=== PATIENT | female | born 1980 | race Asian ===

== ENCOUNTER 2016-12-09 20:46 | Inpatient (IN) | payer MEDICAID ==
[~2016-12-09] VITALS: Ht 157.5 cm; Wt 79.4 kg
[2016-12-09 20:55] VITALS: BP 139/86
[2016-12-09] MEDS ORDERED: ALBUTEROL SULF8.5 GM INH (20:56)
[2016-12-09] MEDS ORDERED: Solu-MEDROL 125mg Inj IVP ONE (21:00)
[2016-12-09] MEDS: Ipratropium 0.02% Inh Soln 2.5ml UD HHN SCH ×3 (21:03→21:36)
[2016-12-09] MEDS: Albuterol ud Inhalation HHN SCH ×3 (21:03→21:36)
--- NOTE | 2016-12-09 21:06 | Emergency Room Report ---
History of Present Illness General Chief Complaint: Asthma Source: Patient Present Illness HPI 36YOF known asthmatic BIBEMS for SOB for 1 hour Initial o2 sat 90% per EMS Never intubated previously Meds: Allergies: Coded Allergies: ASPIRIN (Verified Allergy, Unknown, 12/09/16) Patient History Past Medical History: asthma Past Surgical History: none Pertinent Family History: none Social History: Denies: alcohol use, drug use, smoking Last Menstrual Period: Last month Now: No Immunizations: UTD Reviewed Nursing Documentation: PMH: Agreed, PSxH: Agreed Nursing Documentation-PMH Past Medical History: No History, Except For Hx Asthma: Yes Review of Systems All Other Systems: negative except mentioned in HPI Physical Exam Vital Signs Date Time Temp Pulse Resp B/P Pulse Ox O2 Delivery O2 Flow Rate FiO2 12/09/16 20:46 98.4 134 28 139/86 99 Simple Mask 10.0 Sp02 EP Interpretation: reviewed, normal General Appearance: normal inspection, well appearing, no apparent distress, alert, GCS 15, non-toxic Head: normocephalic, atraumatic Eyes: bilateral eye EOMI, bilateral eye PERRL ENT: normal ENT inspection, hearing grossly normal, normal voice Neck: normal inspection, full range of motion, supple, no bony tend Respiratory: normal inspection, no respiratory distress, no retraction, no accessory muscle use, speaking full sentences, wheezing Cardiovascular #1: regular rate, rhythm, no edema Gastrointestinal: normal inspection, normal bowel sounds, non tender, soft, no guarding, no hernia Genitourinary: no CVA tenderness Musculoskeletal: normal inspection, back normal, normal range of motion, [place] Sign negative Neurologic: normal inspection, alert, oriented x3, responsive, [employer]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 Afebrile. - Improved with nebs but required steroids, additional Albuterol and Mg for complete resolution - CXR no lobar PNA - Labs: Leuks 15k but afebrile and no PNA so unlikely infectious, likely reactionary/stress induced leuks - Endorsed to Dr Elias for tele admit at 1034pm Rhythm Strip Diag. Results EP Interpretation: yes Rate: 107 Rhythm: NSR, no PVC's, no ectopy Chest X-Ray Diagnostic Results Chest X-Ray Diagnostic Results : Chest X-Ray Ordered: Yes # of Views/Limited/Complete: 1 View Indication: Shortness of Breath EP Interpretation: Yes Interpretation: no consolidation, no effusion, no pneumothorax, no acute cardiopulmonary disease Impression: No acute disease Interpreting ER Provider: Electronically signed by Dr Barroso Last Vital Signs Date Time Temp Pulse Resp B/P Pulse Ox O2 Delivery O2 Flow Rate FiO2 12/09/16 20:46 98.4 134 28 139/86 99 Simple Mask 10.0 Status: improved Disposition: ADMITTED INPATIENT Condition: Serious MARGRET BARROSO M.D. Dec 09, 2016 21:06
[2016-12-09] MEDS ORDERED: Albuterol ud Inhalation HHN ONE (22:00)
[2016-12-09 22:01] LABS: EOSINOPHILS % (AUTO) 6.8 % (0.0-3.0); LYMPHOCYTES % (AUTO) 31.8 % (20.0-45.0); MEAN CORPUSCULAR HEMOGLOBIN 31.8 PG (27.0-31.0); MEAN CORPUSCULAR HGB CONC 33.8 G/DL (32.0-36.0); MEAN CORPUSCULAR VOLUME 94 FL (80-99); MEAN PLATELET VOLUME 8.1 FL (6.5-10.1); NEUTROPHILS % (AUTO) 53.4 % (45.0-75.0); PLATELET COUNT 247 K/UL (150-450); RED BLOOD COUNT 4.67 M/UL (4.20-5.40); RED CELL DISTRIBUTION WIDTH 12.4 % (11.6-14.8)
[2016-12-09 22:20] LABS: ALANINE AMINOTRANSFERASE 77 U/L (3-33); ALBUMIN/GLOBULIN RATIO 1.4 (1.0-2.7); ANION GAP 13 (5-15); ASPARTATE AMINO TRANSFERASE 46 U/L (5-40); CALCIUM 9.1 mg/dL (8.6-10.2); CARBON DIOXIDE 26 mEQ/L (20-30); CHLORIDE 104 mEQ/L (98-107); CREATININE 0.7 mg/dL (0.5-0.9); GLOMERULAR FILTRATION RATE > 60 mL/min (>60); HEMOLYSIS 15; POTASSIUM 3.9 mEQ/L (3.4-4.9); SODIUM 143 mEQ/L (135-145); TOTAL PROTEIN 6.9 g/dL (6.6-8.7)
[2016-12-09] MEDS ORDERED: Levofloxacin 500mg tab ORAL SCH (23:00)
[2016-12-09] MEDS: DuoNeb 0.5-3(2.5)mg/3ml neb HHN SCH (23:00)
[2016-12-09 23:03] VITALS: BP 125/99
[2016-12-10 00:39] VITALS: BP 120/70
[2016-12-10] MEDS: DuoNeb 0.5-3(2.5)mg/3ml neb HHN SCH ×2 (02:46→07:43)
[2016-12-10 04:30] VITALS: BP 131/77
[2016-12-10] MEDS ORDERED: Solu-MEDROL 125mg Inj IVP SCH (06:00)
[2016-12-10 08:00] VITALS: BP 127/81
[2016-12-10] MEDS ORDERED: PREDNISONE10 M2 PO (08:44)
[2016-12-10] MEDS ORDERED: BREO ELLIPTA 21 EACH IH (08:44)
[2016-12-10] MEDS ORDERED: ALBUTEROL SULF8.5 GM INH (08:44)
[2016-12-10] MEDS ORDERED: Heparin 5000 units/ml inj SUBQ SCH (09:00)
--- NOTE | 2016-12-10 11:15 | History and Physical Report ---
DATE OF ADMISSION: 12/09/2016 CHIEF COMPLAINT: Asthma exacerbation. HISTORY OF PRESENT ILLNESS: This is a 36-year-old female, she has a prior history of asthma. She has never been hospitalized shortness of breath for two days consistent with her asthma exacerbation in the past. She did not improve with her home treatment and is now admitted for further evaluation and care. She denies any fevers or chills. PAST MEDICAL HISTORY: As above. PAST SURGICAL HISTORY: Includes cholecystectomy. CURRENT MEDICATIONS: Reconciled and reviewed. ALLERGIES: Aspirin. FAMILY HISTORY: Noncontributory. SOCIAL HISTORY: Negative for tobacco, ethanol, or drugs. REVIEW OF SYSTEMS: Negative except for shortness of breath and wheezing. PHYSICAL EXAMINATION: GENERAL: The patient is well-developed female, in no apparent distress. She is able to speak in full sentences. VITAL SIGNS: Temperature is 97 degrees, pulse 106, respirations 18, blood pressure 127/81, and the patient is saturating 96% on room air. NECK: Supple. No JVD. HEART: Regular rate and rhythm. LUNGS: Clear to auscultation with bilateral wheezes. ABDOMEN: Soft, nontender, and nondistended. EXTREMITIES: Without clubbing, cyanosis, or edema. LABORATORY AND DIAGNOSTIC DATA: Laboratories were reviewed. Chest x-ray is clear. ASSESSMENT: This is a pleasant female with complaints of asthma exacerbation. PLAN: IV steroids, respiratory treatments [id number], and empiric antibiotics for bronchitis. We will reassess in the next 24 to 48 hours for discharge. Jame Elias M.D. DR: BECK JOB#: [id number] CC:
--- NOTE | 2016-12-10 11:44 | Diagnostic Imaging Report ---
Indication: Dyspnea Comparison: None A single view chest radiograph was obtained. Findings: Cardiomediastinal appearance is within normal limits for age. Pulmonary vascularity is appropriate. The diaphragmatic contour is smooth and costophrenic angles are sharp. No pleural effusions are identified. The bones are unremarkable. Impression: No acute findings
--- NOTE | 2016-12-11 10:15 | Discharge Summary ---
Discharge Summary Hospital Course Date of Admission Dec 09, 2016 at 22:12 Date of Discharge Dec 10, 2016 at 10:25 Admitting Diagnosis asthma exac HPI Rupal Colón is a 36 year old female who was admitted on Dec 09, 2016 at 22:12 for Asthma Exacerbation Hospital Course dc summary #[id number] Discharge Condition Upon Discharge: stable Discharge Disposition Patient was discharged to Home (01) Discharge Diagnoses: Discharge Instructions Discharge Instructions Special Instructions I have been assigned to complete a D/C Summary on this account. I was not involved in the patient management Emilia Robledo NP (Vanchtein) Dec 11, 2016 10:15
--- NOTE | 2016-12-11 18:56 | Cardiology Report ---
APPROVED REPORT EKG Measurement Heart [id number] [place] [id number] Sinus tachycardia with frequent premature ventricular complexes
--- NOTE | 2016-12-11 23:15 | Discharge Summary 2 SIG ---
DATE OF ADMISSION: 12/09/2016 DATE OF DISCHARGE: 12/10/2016 REASON FOR ADMISSION: 36-year-old female with known history of asthma, presented to emergency room with shortness of breath for one hour. Oxygen saturation was 90% on the room air. She was afebrile, tachycardic, and tachypneic. Heart rate- 134. Respiratory rate -28. The patient required placement of a simple mask and received oxygen at 10 liters via simple mask with pulse oximetry of 99%. Chest x-ray revealed no evidence of pneumonia. WBC -15, but no fever. The patient was given IV steroids, nebulizing treatment twice along with magnesium. The patient was admitted for further management. ADMITTING DIAGNOSES: 1. Acute asthma exacerbation. 2. History of asthma. HOSPITAL STAY: The patient was admitted. The patient was started on IV steroids. Supplemental oxygen was provided to keep saturation above 92% . Nebulizing treatment with a bronchodilator therapy was provided around the clock and as needed. The patient was started on empiric antibiotics. DVT prophylaxis provided. Next day, respiratory status improved. She was able to be weaned to room air. Pulse oximetry was stable on room air. Decreased chest tightness. No further shortness of breath. The patient was stable for discharge on oral steroids as well as inhalers: maintenance inhaler Breo and rescue inhaler Albuterol. The patient was encouraged to follow up with primary medical doctor to keep asthma under control. Due to rapid and unexpected improvement in patient condition, the patient was discharged in one day. DISCHARGE DIAGNOSES: 1. Acute asthma exacerbation. 2. History of asthma. DISCHARGE INSTRUCTIONS: The patient to follow up with the primary medical doctor. DISCHARGE MEDICATIONS: See medication reconciliation list. Jame Elias M.D. I have been assigned to dictate discharge summary on this account and I was not involved in the patient's management. Emilia Robledo (Vanchtein) N.PMargie DR: CORINNE JOB#: [id number] CC: LOBITO
== END 2016-12-10 10:25 | disposition home or self-care (01) | DRG 141 ==
LOC: EDBD 20:46 → EMR 21:05 → 2E 22:12 → EDBEDREQ 22:24
DX: J45.901 Unspecified asthma with (acute) exacerbation (principal); Z88.6 Allergy status to analgesic agent
CPT/HCPCS: 36415; 71010; 80053; 85025; 93005; 94640; 94664; J7620

== ENCOUNTER 2018-12-01 03:17 | Emergency (ER) | payer SELFPAY ==
[~2018-12-01] VITALS: Ht 157.5 cm; Wt 63.5 kg
[~2018-12-01 03:17] MED LIST: ALBUTEROL SULF8.5 GM INH; BREO ELLIPTA 21 EACH IH; PREDNISONE10 M2 PO
[2018-12-01 03:27] VITALS: BP 125/73
--- NOTE | 2018-12-01 03:29 | NUR ---
ER Nurse Note: Pt BIBA 29 from home c/o difficulty breathing since 99. Pt stated she lost her inhailer eariler yesterday 11/30 . Wheezes heard in all lobes. Breathing treatment given by EMS on route. RT notified. Will continue to monitor.
[2018-12-01] MEDS ORDERED: Albuterol ud Inhalation HHN ONE ×2 (03:45→04:45)
[2018-12-01] MEDS ORDERED: Ipratropium 0.02% Inh Soln 2.5ml UD HHN ONE ×2 (03:45→04:45)
--- NOTE | 2018-12-01 04:03 | Emergency Room Report ---
History of Present Illness General Chief Complaint: Dyspnea/Respdistress Source: Patient Present Illness HPI 38-year-old female presents ED for evaluation. Brought in by EMS from home. States she has been feeling short of breath x 1 day. History of asthma. Given breathing treatment by EMS and states she feels better. Does not have an inhaler at this time. Denies smoking. Denies fevers or chills. Denies cough. No other aggravating relieving factors. Denies any other associated symptoms Allergies: Coded Allergies: ASPIRIN (Verified Allergy, Unknown, 12/09/16) Patient History Past Medical History: asthma Past Surgical History: none Pertinent Family History: none Social History: Denies: smoking, alcohol use, drug use Now: No Immunizations: UTD Reviewed Nursing Documentation: PMH: Agreed; PSxH: Agreed Nursing Documentation-PMH Past Medical History: No History, Except For Hx Cardiac Problems: No Hx Asthma: Yes Hx Cancer: No Hx Neurological Problems: No Review of Systems All Other Systems: negative except mentioned in HPI Physical Exam Vital Signs Date Time Temp Pulse Resp B/P (MAP) Pulse Ox O2 Delivery O2 Flow Rate FiO2 12/01/18 03:13 102 18 125/73 (90) 100 Room Air 12/01/18 03:27 98.4 12/01/18 03:37 21 Sp02 EP Interpretation: reviewed, normal General Appearance: no apparent distress, alert, GCS 15, non-toxic Head: normocephalic, atraumatic Eyes: bilateral eye normal inspection, bilateral eye PERRL ENT: hearing grossly normal, normal pharynx, no angioedema, normal voice Neck: full range of motion, supple/symm/no masses Respiratory: decreased breath sounds, speaking full sentences, wheezing Cardiovascular #1: regular rate, rhythm, no edema Cardiovascular #2: 2+ carotid (R), 2+ carotid (L), 2+ radial (R), 2+ radial (L) , 2+ dorsalis pedis (R), 2+ dorsalis pedis (L) Gastrointestinal: normal bowel sounds, non tender, soft, non-distended, no guarding, no rebound Rectal: deferred Genitourinary: normal inspection, no CVA tenderness Musculoskeletal: back normal, gait/station normal, normal range of motion, non- tender Neurologic: alert, oriented x3, responsive, motor strength/tone normal, sensory intact, speech normal Psychiatric: judgement/insight normal, memory normal, mood/affect normal, no suicidal/homicidal ideation Reflexes: 3+ bicep (R), 3+ bicep (L), 3+ tricep (R), 3+ tricep (L), 3+ knee (R) , 3+ knee (L) Lymphatic: no adenopathy Medical Decision Making Diagnostic Impression: Primary Impression: Asthma exacerbation Qualified Codes: J45.901 - Unspecified asthma with (acute) exacerbation ER Course Hospital Course 38 yo F presents with SOB, wheezing. h/o asthma Differential diagnoses include: URI, bronchitis, asthma/COPD, pneumonia Clinical course Patient placed on stretcher. After initial history, physical exam reveals a female in no acute distress. Bilateral TM unremarkable. No pharyngeal erythema. No tonsillar exudates. No lymphadenopathy. Mild wheezing noted on exam, no signs of respiratory distress or retractions. Patient given Prednisone and albuterol treatment in ED with symptoms improved. discussed findings with patient. Will discharge to home with prescription for albuterol and prednisone. Does not have a PMD. Will provide referrals Diagnosis - asthma exacerbation Stable and discharged home with prescriptions for prednisone, albuterol. Instructed to followup with PMD. Return to ED if symptoms recur or worsen Last Vital Signs Date Time Temp Pulse Resp B/P (MAP) Pulse Ox O2 Delivery O2 Flow Rate FiO2 12/01/18 03:57 108 20 100 Room Air 21 12/01/18 03:27 98.4 125/73 Status: improved Disposition: HOME, SELF-CARE Condition: Stable Scripts Prednisone* (PREDNISONE*) 20 Mg Tablet 40 MG ORAL DAILY, #10 TAB Prov: Daniel Dave MD 12/01/18 Albuterol Sulfate* (ALBUTEROL SULFATE MDI*) 8.5 Gm Hfa.aer.ad 2 PUFF INH Q6H, #1 EA 0 Refills Prov: Daniel Dave MD 12/01/18 Referrals: NOT CHOSEN IPA/,REFERRING (PCP) Daniel Dave MD Dec 01, 2018 04:03
--- NOTE | 2018-12-01 04:19 | NUR ---
ER Nurse Note: Breathing treatment completed; pt tolerated well, no wheezes heard. Pt asleep, easily arousable, VSS, no signs of distress. All safety measures met; will continue to montior.
[2018-12-01] MEDS ORDERED: ALBUTEROL SULF8.5 GM INH (04:34)
[2018-12-01] MEDS ORDERED: PREDNISONE20 MG ORAL (04:34)
[2018-12-01 05:15] VITALS: BP 125/73
--- NOTE | 2018-12-01 05:15 | NUR ---
ER Nurse Note: Pt seen, treated, medically cleared for discharge by ERMD. Discharge instuctions and prescriptions given with repeat verbalization by pt. Emphasized to follow up with primay care provider; take whole course of medication. Explained each medication. All orders completed per ERMD orders. Pt a&ox4, VSS, no signs of distress. ID band removed. IV discontinued; site clean and bandaged. All questions answered per pt's questions. Pt left with all belongings, left with own transportation.
== END 2018-12-01 05:15 | disposition home or self-care (01) ==
LOC: EDBD 03:17 → EMR 03:34
DX: J45.901 Unspecified asthma with (acute) exacerbation (principal); Z88.6 Allergy status to analgesic agent
CPT/HCPCS: 94640; 94664; 99283; J7512